=== PATIENT | female | born 1935 | race Caucasian/White ===

== ENCOUNTER 2017-01-27 10:41 | Observation (INO) | payer MEDICARE ==
[2017-01-27 11:01] LABS: Bilirubin Negative (Negative); Blood, Urine Trace (Negative); Glucose, Urine (Dipstick) Negative (Negative); Ketone, Urine Negative (Negative); Nitrite Negative (Negative); Protein, Urine (Dipstick) Trace mg/dL (Neg-Trace); Urobilinogen 0.2 mg/dL (0.2-1.0)
[2017-01-27 11:19] LABS: #Eosinphils 0.4 thou/uL (0.0-0.7); #Lymphocytes 2.1 thou/uL (1.20-3.40); #Monocytes 0.5 thou/uL (0.11-0.59); %Basophils 0.1 % (0.0-1.0); %Eosinophils 4.7 % (0.0-10.0); %Lymphocytes 26.1 % (21.0-51.0); %Monocytes 6.6 % (0.0-10.0); Hematocrit 36.2 % (36.0-47.0); Mean Platelet Volume 6.9 fL (7.4-10.4); Red Blood Cell (RBC) Count 3.89 mill/uL (4.20-5.40)
[2017-01-27 11:36] LABS: Bacteria/HPF 1+ HPF (None Seen); RBC/HPF 0-3 HPF (0-3)
[2017-01-27 11:45] LABS: ALT (SGPT) 19 U/L (8-55); AST (SGOT) 20 U/L (5-34); Alkaline Phosphatase 47 U/L (40-150); Anion Gap 18 mmol/L (10-20); BUN (Urea Nitrogen) 37 mg/dL (9.8-20.1); Bilirubin, Total 0.3 mg/dL (0.2-1.2); Calc. Creatinine Clearance 0 mL/min (70-130); Calcium 9.5 mg/dL (7.8-10.44); Carbon Dioxide 23 mmol/L (23-31); Chloride 99 mmol/L (98-107); Estimated GFR-MDRD 19; Globulin 3.4 g/dL (2.4-3.5); Protein, Total 7.5 g/dL (6.0-8.3)
[2017-01-27 11:51] LABS: Hyaline Casts/LPF NONE SEEN LPF (0-3 Hyaline)
[2017-01-27] MEDS ORDERED: Acetaminophen 325 MG TAB PO PRN ×2 (14:58→15:00)
[2017-01-27] MEDS ORDERED: Ondansetron ODT 4 MG TAB SL PRN (14:58)
[2017-01-27] MEDS ORDERED: Ondansetron HCl/PF 4 MG/2 ML Vial IVP PRN ×2 (14:58→15:00)
[2017-01-27] MEDS ORDERED: Zolpidem Tartrate 5 MG TAB PO PRN (15:00)
[2017-01-27] MEDS ORDERED: Loratadine 10 MG TAB PO PRN (15:00)
[2017-01-27] MEDS ORDERED: HumaLOG 300 UNITS/3 ML VIAL SC PRN ×2 (15:00)
[2017-01-27] MEDS ORDERED: ALPRAZolam 0.5 MG TAB PO PRN (15:00)
[2017-01-27] MEDS ORDERED: Diabetic Tussin 200 MG/10 ML UDCUP PO PRN (15:00)
[2017-01-27] MEDS ORDERED: Dextrose 5% in Water 1,000 ML IV PRN (15:00)
[2017-01-27] MEDS ORDERED: Dextrose 50% Abboject 50 ML SYRINGE SLOW IVP PRN (15:00)
[2017-01-27] MEDS ORDERED: Mag-Al 1200 mg/1200 mg/30 ML UDCUP PO PRN (15:00)
[2017-01-27] MEDS ORDERED: HYDROcodone/Acetaminophen 5/325 mg Tablet PO PRN (15:00)
[2017-01-27] MEDS ORDERED: Ondansetron ODT 4 MG TAB PO PRN (15:00)
[2017-01-27] MEDS ORDERED: Eucerin (Mineral Oil/Petrolatum,White) 30 gm Jar TOP PRN (15:00)
[2017-01-27] MEDS ORDERED: Sodium Chloride 0.65% Nasal 44 ML BOT EA NARE PRN (15:00)
[2017-01-27] MEDS ORDERED: Loperamide HCl 2 MG CAP PO PRN (15:00)
[2017-01-27] MEDS ORDERED: Senokot 8.6 MG TAB PO PRN (15:00)
[2017-01-27] MEDS ORDERED: traZODone HCl 50 MG TAB PO PRN (15:00)
[2017-01-27] MEDS ORDERED: Artificial Tears 18 DROP/0.9 ML EA EYE PRN (15:00)
[2017-01-27] MEDS ORDERED: Milk Of Magnesia 30 ML UDCUP PO PRN (15:00)
[2017-01-27 15:03] VITALS: BMI 32.7
--- NOTE | 2017-01-27 15:21 | HP ---
PRIMARY CARE PHYSICIAN: Johan Shelley M.D. CHIEF COMPLAINT: Sent by primary care physician for elevated creatinine. HISTORY OF PRESENT ILLNESS: An 81-year-old female who has history of chronic kidney disease. Her b aseline chronic kidney disease is a stage III. Patient had regular followup visit with Dr. Johan gaona yesterday. Patient was advised to do blood tests yesterday. She went to [facility] and she had blood test done yesterday morning and her creatinine was 3.31. Normally, her creatini ne runs in 1.3 to 1.5 range, but creatinine was significantly elevated and that is why in the time, the patient received call from doctor's office to go to ER for admission. Patient was feeli ng fine and that is why she did not come to the emergency room yesterday. Today, she was also feeli ng much better, but the patient was instructed and that is why she came to the emergency room for ad mission. Today, her creatinine is 2.40. In the emergency room, patient does have urinary tract infection finding in urinalysis, but when we are asking her questions she denies any UTI symptoms. She denies any dysuria, increased frequency, hematuria, fever, or chills. Patient denies herself dehydrated. She is drinking enough liquids at home as well. Patient denies any chest pain, palpitations or shortness of breath. She denies any c onstipation, diarrhea or abdominal pain. She denies taking NSAIDs. Patient is following Dr. Escamilla as a home care manager rn as an outpatient basis. The patient is being admitted to our hospital for worsening renal failure and urinary tract infectio n. REVIEW OF SYSTEMS: Please see my HPI for pertinent positive and negatives. All other review of sys tem reviewed and negative except as mentioned in the HPI. Constitutional: Weight loss or gain, ability to conduct usual activities. Skin: Rash, itching. Eyes: Double vision, pain. ENT/Mouth: Nose bleeding, neck stiffness, pain, tenderness. Cardiovascular: Palpitations, dyspnea on exertion, orthopnea. Respiratory: Shortness of breath, wheezing, cough, hemoptysis, fever or night sweats. Gastrointestinal: Poor appetite, abdominal pain, heartburn, nausea, vomitin g, constipation, or diarrhea. Genitourinary: Urgency, frequency, dysuria, nocturia. Musculoskeletal: Pain, swelling. Neurologic/Psychiatric: Anxiety, depression. Allergy/Immunologic: Skin rash, bleeding tendency. PAST MEDICAL HISTORY: Diabetes type 2, hypertension, hypothyroidism and dyslipidemia. PAST PSYCHIATRIC HISTORY: Anxiety and depression. PAST SURGICAL HISTORY: Right-sided lumpectomy, which turned out to be benign. ALLERGIES: SULFA DRUGS. SOCIAL HISTORY: Patient lives at home by herself. No history of tobacco, alcohol or illicit drug a buse. FAMILY HISTORY: No strong family history of premature coronary artery disease, stroke or cancer. CURRENT HOME MEDICATIONS: Metformin 1000 mg p.o. twice daily, venlafaxine 75 mg p.o. daily, trazodo ne 150 mg p.o. daily, Lipitor 80 mg p.o. at bedtime, Xanax 0.5 mg twice daily, Januvia 100 mg p.o. d aily, vitamin B12 1000 mcg p.o. daily, Synthroid 100 mcg p.o. daily, aspirin 325 mg p.o. daily, Core g 6.25 mg twice daily, amlodipine 10 mg p.o. daily, glipizide 10 mg twice daily, Zetia 10 mg p.o. da leanne, clonidine patch 0.2 mg twice daily. EMERGENCY ROOM COURSE: The patient has received IV fluid. PHYSICAL EXAMINATION: VITAL SIGNS: On arrival in blood pressure 135/70, pulse 66, respiratory rate 18, temperature 98.2, saturation 93% on room air, weight 72.5 kilograms. GENERAL: Patient is currently alert, awake, in no obvious acute distress. HEENT: Normocephalic, atraumatic. Eyes: Pupils round, reactive to light. Extraocular muscles int act. ENT: Oropharynx within normal limits. Moist mucous membranes. No oral lesions. No pharyngeal karl thema. No exudate. NECK: Supple. Range of motion is normal. No meningeal signs of irritation. LUNGS: Clear to auscultation without any rhonchi or rales. CARDIAC: S1, S2 regular without any murmur. ABDOMEN: Soft, bowel sounds present, nontender, nondistended. No organomegaly. No mass. No supra pubic tenderness. BACK: Unremarkable, no CVA tenderness. EXTREMITIES: Upper extremity passive movement of all joints are normal. Lower extremities: No berna ma. Good peripheral pulsation. SKIN: No skin rash. HEMATOLOGICAL SYSTEM: No lymphadenopathy. NEUROLOGIC: Nonfocal examination. The patient moves all 4 limbs. Plantar bilateral flexor. PSYCHIATRIC: Normal affect. SIGNIFICANT LABS: 1. CBC: WBC 8.0, hemoglobin 12.2, platelet 336,000. BMP: Sodium 136, potassium 4.3, chloride 99, carbon dioxide 23, anion gap 18, BUN 37, creatinine 2.40, glucose 243, calcium 9.5. 2. LFT: AST 20, ALT 19, alkaline phosphatase 47, albumin 4.1. Urinalysis suggestive of urinary tr act infection. ASSESSMENT AND PLAN/IMPRESSION: 1. Acute on chronic kidney failure. Baseline chronic kidney disease stage 3. This patient's renal function was elevated yesterday to 3.31 and today at 2.40. Normally her creatinine runs in 1.3-1.5 range. At this point, most likely the patient has prerenal etiology for acute kidney failure. Pat ient will be given slow IV fluid and will repeat BMP tomorrow. We will obtain a renal ultrasound to see any acute process based on previous renal ultrasound. The patient does have chronic medical di sease. This patient is following Dr. Escamilla; and that is why, we will consult Dr. Escamilla for his opinio n, will avoid nephrotoxic agents. We will check urine sodium, urine creatinine, and urine protein a s a part of workup. 2. Urinary tract infection. The patient does not have any urinary tract infection symptoms. Urina lysis consistent with urinary tract infection. We will send urine culture and empirically start Grayson ephin 1 g q. 24 hours. Upon discharge, the patient can be given Cipro renally adjusted dose. 3. Diabetes type 2. We will check hemoglobin A1c and will continue with insulin as per sliding sca le per protocol. Diabetic diet will be given. We will also continue patient's home medication of J anuvia 100 mg p.o. daily and glipizide 10 mg p.o. b.i.d. We will hold metformin because of renal fa ilure. 4. Hypertension. We will continue amlodipine 10 mg p.o. daily. We will hold on lisinopril because of renal failure. We will also continue Coreg 12.5 mg p.o. twice daily, clonidine 0.2 mg twice jenniffer ly. 5. Hypothyroidism. We will continue Synthroid 100 mcg p.o. daily. 6. Dyslipidemia. We will continue Lipitor 80 mg p.o. daily and Zetia 10 mg p.o. daily. 7. Anxiety with depression. We will continue venlafaxine 75 mg p.o. daily, Xanax 0.5 mg p.o. b.i.d ., Ambien 10 mg p.o. at bedtime and trazodone 150 mg p.o. daily. 8. Deep venous thrombosis prophylaxis not needed because we are expecting discharge in 24-48 hours. 9. Gastrointestinal prophylaxis, Protonix 40 mg p.o. daily. CODE STATUS: The patient is FULL CODE. Patient does not have any surrogate decision maker. Disposition plan based on clinical course upon improvement of renal function. Plan of care discusse d with the patient in detail.
[2017-01-27] MEDS ORDERED: cefTRIAXone\\ROCEPHIN 1 GM in Sodium Chloride 0.9% 100 ML IVPB SCH (16:00)
[2017-01-27] MEDS: Sodium Chloride 0.9% 1,000 ML IV SCH (17:02)
[2017-01-27] MEDS: Carvedilol 6.25 MG TAB PO SCH (17:02)
--- NOTE | 2017-01-27 19:18 | ULT ---
RENAL SONOGRAM: 01/27/17 HISTORY: Acute renal insufficiency. FINDINGS: Limited visualized portion of the right hepatic lobe demonstrates increased echogenicity suggesting diffuse fatty infiltration. The right kidney demonstrates a normal sonographic appearance without evidence of a renal calculus, hydronephrosis, or renal mass. The right kidney measures 8.6 cm x 5 cm. The left kidney measures 9.6 cm x 4.2 cm. There is an anechoic cystic structure seen in the mid port ion of the left kidney measuring 1.8 cm which demonstrates sonographic characteristics most consiste nt with a cyst. This cyst has enlarged when compared to prior study on 06/10/14 where this measured 1. 5 cm in maximal dimensions. There is no solid renal mass, renal calculus or hydronephrosis involving the left kidney. Urinary bladder is incompletely distended but otherwise grossly normal in appearance. There has been no other interval change compared to the prior exam in 2014. IMPRESSION: 1. Small left renal cyst. 2. No evidence of hydronephrosis bilaterally. 3. Mild fatty infiltration of the visualized right hepatic lobe. POS: TAHIR
[2017-01-27] MEDS ORDERED: Atorvastatin Calcium 40 MG TAB PO SCH (21:00)
[2017-01-28 04:28] LABS: #Eosinphils 0.4 thou/uL (0.0-0.7); #Lymphocytes 2.6 thou/uL (1.20-3.40); #Monocytes 0.8 thou/uL (0.11-0.59); #Neutrophils 3.4 thou/uL (1.40-6.50); %Basophils 0.5 % (0.0-1.0); %Eosinophils 4.9 % (0.0-10.0); %Lymphocytes 36.5 % (21.0-51.0); %Monocytes 10.8 % (0.0-10.0); Hematocrit 32.3 % (36.0-47.0); Mean Platelet Volume 6.9 fL (7.4-10.4); Red Blood Cell (RBC) Count 3.43 mill/uL (4.20-5.40); White Blood Cell (WBC) Count 7.2 thou/uL (4.8-10.8)
[2017-01-28 04:51] LABS: Anion Gap 13 mmol/L (10-20); BUN (Urea Nitrogen) 30 mg/dL (9.8-20.1); BUN/Creatinine Ratio 15.87; Calc. Creatinine Clearance 27 mL/min (70-130); Calcium 8.5 mg/dL (7.8-10.44); Carbon Dioxide 23 mmol/L (23-31); Chloride 106 mmol/L (98-107); Estimated GFR-MDRD 26
[2017-01-28] MEDS ORDERED: Levothyroxine Sodium 100 MCG TAB PO SCH (06:00)
--- NOTE | 2017-01-28 07:06 | CON ---
DATE OF CONSULTATION: 01/27/2017 CONSULTING PHYSICIAN: Angela Angel M.D. REASON FOR CONSULTATION: Acute kidney injury. REASON FOR ADMISSION: Abnormal labs. HISTORY OF PRESENT ILLNESS: This is an 81-year-old female with a history of chronic kidney disease, hypertension, obesity, type 2 diabetes, hypothyroidism, came to the hospital with abnormal labs. S he was found to have elevated creatinine of 3.3 from a baseline of 1.3 and was sent to the hospital yesterday, but she ; she was feeling fine. She denies any nausea, vomiting, or diarrhea. No c hest pain or palpitation. No fever or chills. No change in medication or antibiotics lately. No s kin rash. PAST MEDICAL HISTORY: Positive for type 2 diabetes, hypertension, CKD, hypothyroidism, dyslipidemia , anxiety, and depression. PAST SURGICAL HISTORY: Lumpectomy. HOME MEDICATIONS: Metformin, venlafaxine, trazodone, Lipitor, Xanax, Januvia, vitamin B12, Synthroi d, aspirin, Coreg, amlodipine, glipizide, Zetia, and clonidine. ALLERGIES: SULFA DRUGS. SOCIAL HISTORY: No smoking, alcohol or illicit drug abuse reported. FAMILY HISTORY: No history of any kidney disease. REVIEW OF SYSTEMS: The following complete review of systems was negative unless otherwise mentioned in the HPI or below: Constitutional: Weight loss or gain, ability to conduct usual activities. S kin: Rash, itching. Eyes: Double vision, pain. ENT/Mouth: Nose bleeding, neck stiffness, pain, tenderness. Cardiovascular: Palpitations, dyspnea on exertion, orthopnea. Respiratory: Shortness of breath, wheezing, cough, hemoptysis, fever or night sweats. Gastrointestinal: Poor appetite, a bdominal pain, heartburn, nausea, vomiting, constipation, or diarrhea. Genitourinary: Urgency, kira quency, dysuria, nocturia. Musculoskeletal: Pain, swelling. Neurologic/Psychiatric: Anxiety, dep ression. Allergy/Immunologic: Skin rash, bleeding tendency. PHYSICAL EXAMINATION: GENERAL: This is an obese female, in no apparent distress. VITAL SIGNS: Temperature 96, pulse 80, respiratory rate 18, blood pressure is 166/69. HEENT: Atraumatic, normocephalic. Oral mucosa is moist. NECK: Supple. CARDIOVASCULAR: S1, S2 heard. Rate and rhythm regular. RESPIRATORY: Clear. GASTROINTESTINAL: Abdomen is soft. MUSCULOSKELETAL: No tenderness noted. DERMATOLOGIC: No skin rash. NEUROLOGIC: Alert, awake. PSYCHIATRIC: Mood and affect normal. LABORATORY DATA: Hemoglobin is 12.2. Potassium is 4.3, BUN is 37, creatinine is 2.4 from 3.3. ASSESSMENT AND PLAN: 1. Acute kidney injury most likely volume depletion even though history is not suggestive of that. Continue IV fluids. Renal function is already better. 2. Renal ultrasound with small left renal cyst, no evidence of any hydronephrosis bilaterally. 3. Hypertension, stable. 4. Edema, controlled. 5. Type 2 diabetes. Plan is to monitor renal function, avoid nephrotoxins. Renally dose all the medications. Medicatio n list reviewed and monitor blood pressure closely, avoid hypotension. Continue IV fluids. We will continue to follow. Thank you for the consultation.
[2017-01-28] MEDS ORDERED: glipiZIDE 10 MG TAB PO SCH (07:30)
[2017-01-28 08:33] VITALS: BP 126/91; TEMP 98.3
[2017-01-28] MEDS ORDERED: Cyanocobalamin (Vitamin B-12) 1,000 MCG TAB PO SCH (09:00)
[2017-01-28] MEDS ORDERED: Ezetimibe 10 MG TAB PO SCH (09:00)
[2017-01-28] MEDS ORDERED: Alogliptin Benzoate 6.25 MG TABLET PO SCH (09:00)
[2017-01-28] MEDS: Sodium Chloride 0.9% 1,000 ML IV SCH (09:00)
[2017-01-28] MEDS ORDERED: Aspirin 325 MG TAB PO SCH (09:00)
[2017-01-28] MEDS ORDERED: Venlafaxine HCl XR 75 MG CAP PO SCH (09:00)
[2017-01-28] MEDS: Carvedilol 6.25 MG TAB PO SCH (09:01)
--- NOTE | 2017-01-28 15:00 | DIS ---
DATE OF ADMISSION: 01/27/2017 DATE OF DISCHARGE: 01/28/2017 PRIMARY CARE PHYSICIAN: Dr. Johan Shelley. DISCHARGE DIAGNOSIS: Acute on chronic renal insufficiency, resolving. CONDITION OF PATIENT AT THE TIME OF DISCHARGE: Stable. I assessed Ms. Parmar on the day of discha rge. She denies any chest pain or shortness of breath. PHYSICAL EXAMINATION: VITAL SIGNS: Stable. HEART: S1 and S2 are heard, regular. LUNGS: Clear to auscultation bilaterally. DISCHARGE MEDICATIONS: Alprazolam 0.5 mg 2 times a day, amlodipine 10 mg daily, aspirin 325 mg luis y, atorvastatin 80 mg daily, Coreg 6.25 mg 2 times a day, Zetia 10 mg daily, venlafaxine 75 mg daily , clonidine 0.2 mg 2 times a day, glipizide 10 mg 2 times a day, Januvia 100 mg daily, trazodone 150 mg daily. Metformin has been discontinued until it is reassessed by her primary care physician. HOSPITAL COURSE: Ms. Parmar is a pleasant 81-year-old lady who was admitted to [facility] on 01/28/2017. She was sent to the emergency room because of acute on chronic renal insufficiency. She was seen by Nephrology Service. She received intravenous fluids. Metformin was on hold. Her creatinine improved to 1.89 on the day of discharge. It was 3.31 on 01/26/2017. Her metformin has been stopped until her renal function improves. She is advised to follow up with her primary care physician to be reassessed. She was also started on antibiotics for possible urinary tract infection. However, she denied any d ysuria or increased frequency of urination. Therefore, antibiotics were stopped prior to discharge. On the day of discharge, Ms. Parmar has normal electrolytes, blood urea nitrogen of 30, creatinine 1.89. White count 7,200, hemoglobin 10.8, and platelet count 255,000. Many thanks for allowing me to participate in your patient's care. Please feel free to contact me w ith any questions or concerns. DISCHARGE DESTINATION: Home.
--- NOTE | 2017-01-28 17:08 | PRG ---
DATE OF SERVICE: 01/28/2017 NEPHROLOGY PROGRESS NOTE SUBJECTIVE: Patient was seen and examined at bedside and overnight events noted. Patient denies an y shortness of breath or chest pain or palpitation. No history of nausea or vomiting or diarrhea or fever or chills or cramps. OBJECTIVE: GENERAL: This is a well-built female in no apparent distress. VITAL SIGNS: Temperature 98.3, pulse 50, respiratory rate 16, blood pressure 126/91. HEENT: Atraumatic, normocephalic. Oral mucosa is moist. NECK: Supple. CARDIOVASCULAR: S1 and S2 heard, rate and rhythm regular. RESPIRATORY: Clear to auscultation. GASTROINTESTINAL: Abdomen is soft. MUSCULOSKELETAL: No tenderness, no edema. DERMATOLOGIC: No skin rash. NEUROLOGIC: Alert and awake and oriented X3. No focal neurologic deficits. Moving all the extremi ties. PSYCHIATRIC: Mood and affect normal. LABORATORY DATA: Creatinine 1.8, potassium 4.2. ASSESSMENT AND PLAN: 1. Acute kidney injury on chronic kidney disease, stage 3. Renal function is getting better. Avoi d nephrotoxins. Patient wants to go home today. 2. Hypertension, stable. 3. Edema, controlled. 4. Type 2 diabetes. 5. Obesity. The patient wanted to go home. Follow up in the clinic in 1 week.
--- NOTE | 2017-01-30 16:20 | RAD ---
SINGLE VIEW OF THE CHEST: Comparison: 08-08-16 History: Unable to urinate, renal failure. FINDINGS: Single view of the chest shows a normal sized cardiomediastinal silhouette with atherosclerotic calc ifications in the aorta. There is no evidence of consolidation, mass, or pleural effusion. Degenerat mark changes are seen in the spine. IMPRESSION: 1. No evidence of acute cardiopulmonary disease. 2. Atherosclerotic disease. POS: CARSONH
== END 2017-01-28 13:45 | disposition home or self-care (01) ==
LOC: ERS 10:41 → 2SW 13:47
PROVIDERS: ADMIT Internal Medicine; ATTEND Internal Medicine
DX: N17.9 Acute kidney failure, unspecified (principal); E11.22 Type 2 diabetes mellitus with diabetic chronic kidney disease; I12.9 Hypertensive chronic kidney disease with stage 1 through stage 4 chronic kidney disease, or unspecified chronic kidney disease; N18.3 Chronic kidney disease, stage 3 (moderate); E03.9 Hypothyroidism, unspecified; E78.5 Hyperlipidemia, unspecified; F41.9 Anxiety disorder, unspecified; F32.9 Major depressive disorder, single episode, unspecified; E66.9 Obesity, unspecified; Z68.32 Body mass index [BMI] 32.0-32.9, adult; Z88.2 Allergy status to sulfonamides; Z79.84 Long term (current) use of oral hypoglycemic drugs; Z79.82 Long term (current) use of aspirin; Z79.899 Other long term (current) drug therapy; Z98.890 Other specified postprocedural states
CPT/HCPCS: 71010; 76770; 80053; 80069; 82570; 82962 ×2; 84156; 84300; 85025 ×2; 87086; 96361 ×3; 96365; 97139; 99285; G0378; 36415; 36416; 81003; 81015; 96360; J0696; J7050

== ENCOUNTER 2017-05-04 15:11 | Inpatient (IN) | payer MEDICARE ==
--- NOTE | 2017-05-04 16:41 | CT ---
CT ABDOMEN AND PELVIS NONCONTRAST 05/04/17 HISTORY: Urinary retention. Left flank pain. COMPARISON: 02/24/09. FINDINGS: Each renal collecting system and ureter are decompressed without stone evident. Urinary bladder shows no focal abnormalities. Lack of contrast limits evaluation for other abnormalities. Chronic scarring at the left lung base is stable. There is calcification throughout the arterial structures. Inflammation within the left lowe r quadrant surrounds an area of circumferential wall thickening involving the lower left colon where there are prominent diverticula. Diverticula are present throughout the remainder of the sigmoid colo n. IMPRESSION: 1. No CT evidence of urinary tract obstruction or calcification. 2. Lower left colon diverticulitis. 3. Atherosclerosis. POS: CARSON
[2017-05-04 17:05] LABS: Bilirubin Negative (Negative); Blood, Urine Negative (Negative); Clarity CLEAR (Clear); Glucose, Urine (Dipstick) Negative (Negative); Leukocyte Negative (Negative); Nitrite Negative (Negative); Protein, Urine (Dipstick) Negative (Neg-Trace); Specific Gravity, Urine 1.016 (1.002-1.036); Urobilinogen 0.2 mg/dL (0.2-1.0)
[2017-05-04 18:22] LABS: #Basophils 0.1 thou/uL (0.0-0.2); #Eosinphils 0.3 thou/uL (0.0-0.7); #Lymphocytes 2.8 thou/uL (1.20-3.40); #Monocytes 1.5 thou/uL (0.11-0.59); #Neutrophils 12.6 thou/uL (1.40-6.50); %Basophils 0.5 % (0.0-1.0); %Eosinophils 1.9 % (0.0-10.0); %Monocytes 8.5 % (0.0-10.0); %Neutrophils 73.1 % (42.0-75.0); Hemoglobin 13.1 g/dL (12.0-16.0); Mean Corpuscular HGB CONC 31.9 g/dL (32.0-36.0); Mean Corpuscular Volume 94.2 fl (81.0-99.0); Mean Platelet Volume 7.1 fL (7.4-10.4); Platelet Count 287 thou/uL (130-400); Red Blood Cell (RBC) Count 4.38 mill/uL (4.20-5.40); White Blood Cell (WBC) Count 17.3 thou/uL (4.8-10.8)
[2017-05-04 18:39] LABS: ALT (SGPT) Less than 7 U/L (8-55); AST (SGOT) 18 U/L (5-34); Albumin 4.1 g/dL (3.4-4.8); Alkaline Phosphatase 56 U/L (40-150); Anion Gap 18 mmol/L (10-20); BUN (Urea Nitrogen) 36 mg/dL (9.8-20.1); Bilirubin, Total 0.5 mg/dL (0.2-1.2); Calc. Creatinine Clearance 0 mL/min (70-130); Calcium 9.6 mg/dL (7.8-10.44); Carbon Dioxide 21 mmol/L (23-31); Chloride 102 mmol/L (98-107); Estimated GFR-MDRD 22; Globulin 3.4 g/dL (2.4-3.5); Glucose 106 mg/dL (83-110); Protein, Total 7.5 g/dL (6.0-8.3); Sodium 137 mmol/L (136-145)
[2017-05-04] MEDS ORDERED: Acetaminophen 325 MG TAB PO PRN (19:03)
[2017-05-04] MEDS: Sodium Chloride 0.9% 1,000 ML IV SCH (20:18)
[2017-05-04 22:09] VITALS: BMI 33.7
[2017-05-04] MEDS: metroNIDAZOLE 500 MG in Premix Bag 1 BAG IVPB SCH (23:10)
[2017-05-04] MEDS: HYDROcodone/Acetaminophen 5/325 mg Tablet PO PRN (23:47)
--- NOTE | 2017-05-05 02:15 | HP ---
CHIEF COMPLAINT: Dysuria, unable to pee, make urine. HISTORY OF PRESENT ILLNESS: She is an 81-year-old woman with a history of hypertension, hypothyroidism, diabetes. She came in because of having problem with not peeing for the last 2 days, not eating much, with nausea, and dysuria frequency. When she came to ER, she was found to have urinary retention. Mccullough was placed and 600 urine came out. She also complained of left lower quadrant pain. Denies any fever or any constipation, any bleeding per rectum. PAST MEDICAL HISTORY: She has history of kidney disease, CKD, diabetes, hypertension. PAST SURGICAL HISTORY: Right-sided lumpectomy, benign. PSYCHIATRIC HISTORY: Anxiety and bipolar disorder. SOCIAL HISTORY: Denies alcohol use, drug use. Has no smoking history. Lives at home. Family History: reviewed and not pertinent to current illness MEDICATIONS AT HOME: She is taking metformin 1000 twice daily, trazodone 150 every day, Lipitor 80 mg every day, Januvia 100 mg, Synthroid 100 mcg, amlodipine 1 tablet twice daily, glipizide 10 mg, aspirin 325, clonidine patch weekly, and Zetia. REVIEW OF SYSTEMS: Constitutional: Denies any fever, malaise. ENT: No earaches, no discharge. Eye: No vision problem. Cardiovascular: No chest pain, no PND, no palpitation : Respiratory: No cough, no short of breath. Abdomen: Pain in left lower quadrant. No nausea, no vomiting. Genitourinary: Urinary retention present. The CT scan shows no focal abnormality. Her urine shows negative. PE: Middle age woman not in any distress P89, BP14/60, RR 16, temp 98.6 HEENT, ATNC ANGELIC, EOMI Neck supple, no JVD, no Thyromegaly Chest, Normal Vesicular Breathing, no added sound Abdomen Soft, BS audible, Tenderness in LLQ, no guarding, no rigidity Ext, no pedal edema EMPLOYMENT AGENCY MANAGER Alert and oriented , no focal defecit Labs CT scan showed Acute Diverticultis ASSESSMENT AND PLAN: 1. Acute diverticulitis. We will give IV fluids, IV Levaquin, IV Flagyl. Clear liquid diet as tolerated. 2. Urine retention with Mccullough in place. She has 600 mL out. No any obstruction, could be hypovolemia. 3. Acute chronic kidney disease. We will give IV fluid and monitor her kidneys , BMP. 4. Type 2 diabetes. We will hold her metformin and continue sliding scale. 5. Hypertension. Continue amlodipine. 6. Deep venous thrombosis prophylaxis will be heparin. MTDD
[2017-05-05] MEDS: Sodium Chloride 0.9% 1,000 ML IV SCH ×3 (02:44→21:09)
[2017-05-05 04:34] LABS: #Basophils 0.1 thou/uL (0.0-0.2); #Eosinphils 0.3 thou/uL (0.0-0.7); #Lymphocytes 2.3 thou/uL (1.20-3.40); #Monocytes 1.1 thou/uL (0.11-0.59); #Neutrophils 7.2 thou/uL (1.40-6.50); %Basophils 0.5 % (0.0-1.0); %Eosinophils 2.8 % (0.0-10.0); %Lymphocytes 21.2 % (21.0-51.0); %Monocytes 10.2 % (0.0-10.0); %Neutrophils 65.2 % (42.0-75.0); Hemoglobin 10.4 g/dL (12.0-16.0); Mean Corpuscular HGB CONC 32.1 g/dL (32.0-36.0); Mean Corpuscular Volume 93.2 fl (81.0-99.0); Mean Platelet Volume 7.4 fL (7.4-10.4); Platelet Count 239 thou/uL (130-400); Red Blood Cell (RBC) Count 3.46 mill/uL (4.20-5.40)
[2017-05-05 05:05] LABS: Anion Gap 12 mmol/L (10-20); BUN (Urea Nitrogen) 28 mg/dL (9.8-20.1); Calc. Creatinine Clearance 31 mL/min (70-130); Calcium 8.7 mg/dL (7.8-10.44); Carbon Dioxide 25 mmol/L (23-31); Chloride 106 mmol/L (98-107); Estimated GFR-MDRD 29; Glucose 85 mg/dL (83-110); Potassium 3.8 mmol/L (3.5-5.1); Sodium 139 mmol/L (136-145)
[2017-05-05] MEDS: metroNIDAZOLE 500 MG in Premix Bag 1 BAG IVPB SCH ×3 (05:36→21:10)
[2017-05-05] MEDS: Enoxaparin Sodium 40 MG/0.4 ML SYRINGE SC SCH (11:57)
--- NOTE | 2017-05-05 13:27 | PDOC.PN ---
- Subjective Encounter Start Date: 05/05/17 Encounter Start Time: 13:27 Subjective: Pt seen and examined for Urinary retention and Left Diverticulitis -: feeling better, urine output adequate - Objective Resuscitation Status: Resuscitation Status FULL:Full Resuscitation Vital Signs & Weight: Vital Signs (12 hours) Temp Pulse Resp BP Pulse Ox 05/05/17 11:42 97.8 F 75 18 175/76 H 95 05/05/17 08:00 98.4 F 73 16 129/48 L 92 L Weight Weight 161 lb 8 oz I&O: 05/04/17 05/05/17 05/06/17 06:59 06:59 06:59 Intake Total 1391 Output Total 2250 Balance -859 Result Diagrams: 05/05/17 03:34 05/05/17 03:34 Additional Labs: Accuchecks 05/05/17 10:57 POC Glucose 292 H Phys Exam - Physical Examination HEENT: PERRLA Respiratory: no wheezing, no rales, no rhonchi, wheezing present, clear to auscultation bilateral Cardiovascular: RRR, no significant murmur, no rub, gallop, irregular Gastrointestinal: soft, non-tender, no distention, positive bowel sounds Tenderness LLQ Musculoskeletal: no edema, pulses present, edema present Neurological: non-focal, normal sensation, moves all 4 limbs Psychiatric: normal affect, A&O x 3 Dx/Plan (1) Urinary retention Code(s): R33.9 - RETENTION OF URINE, UNSPECIFIED Status: Acute (2) Diverticulitis large intestine Code(s): K57.32 - DVTRCLI OF LG INT W/O PERFORATION OR ABSCESS W/O BLEEDING Status: Acute - Plan DVT proph w/heparin, DVT proph w/lovenox 1) Acute Diverticultis, continue IV Levaquin, IV Flagyl -: 2) Urinary retention , Mccullough in PLace -: 3 AKIL is improving * . Review of Systems - Review of Systems Respiratory: negative: Cough, Dry, Shortness of Breath, Hemoptysis, SOB with Excertion, Pleuritic Pain, Sputum, Wheezing Cardiovascular: negative: chest pain, palpitations, orthopnea, paroxysmal nocturnal dyspnea, edema, light headedness, other Genitourinary: negative: Dysuria, Frequency, Incontinence, Hematuria, Retention , Other Musculoskeletal: Neck Pain - Medications/Allergies Allergies/Adverse Reactions: Allergies Allergy/AdvReac Type Severity Reaction Status Date / Time Sulfa (Sulfonamide Allergy Verified 12/12/14 21:53 Antibiotics) Medications: Current Medications Acetaminophen (Tylenol) 650 mg PO Q4H PRN PRN Reason: Headache/Fever or Pain Hydrocodone Bitart/Acetaminophen (Tulia 5/325) 1 tab PO Q4H PRN PRN Reason: Moderate Pain (4-6) Last Admin: 05/04/17 23:47 Dose: 1 tab Alprazolam (Xanax) 0.[address] [facility] Amlodipine Besylate (Norvasc) [address] [facility] Aspirin (Ecotrin) [address] [facility] Atorvastatin Calcium (Lipitor) [address] [facility] Carvedilol (Coreg) [address] [facility] Clonidine (Catapres) 0.[address] [facility] Ezetimibe (Zetia) [address] [facility] Enoxaparin Sodium (Lovenox) [address] [facility] Last Admin: 05/05/17 11:57 Dose: Not Given Hydralazine HCl (Apresoline) [address] [facility] Levofloxacin 750 mg/ Device 150 mls @ 100 mls/hr IVPB 1800 [facility] Metronidazole 500 mg/ Device 100 mls @ 100 mls/hr IVPB Q8HR [facility] Last Admin: 05/05/17 05:36 Dose: 100 mls Sodium Chloride (Normal Saline 0.9%) 1,000 mls @ 125 mls/hr IV .Q8H [facility] Last Admin: 05/05/17 13:01 Dose: 1,000 mls Insulin Detemir 45 units/ (Miscellaneous Medication) 0.45 mls @ 0 mls/hr SC DAILY [facility] PRN Reason: As Directed Levothyroxine Sodium (Synthroid) [address] [facility] Trazodone HCl (Desyrel) [address] [facility] Venlafaxine HCl (Effexor) [address] [facility]
[2017-05-05] MEDS: hydrALAZINE 25 MG TAB PO SCH ×2 (17:18→21:10)
[2017-05-05] MEDS: ALPRAZolam 0.5 MG TAB PO SCH (21:09)
[2017-05-05] MEDS: cloNIDine 0.2 MG TAB PO SCH (21:09)
[2017-05-05] MEDS: HYDROcodone/Acetaminophen 5/325 mg Tablet PO PRN (21:10)
[2017-05-06] MEDS: Sodium Chloride 0.9% 1,000 ML IV SCH ×3 (02:14→18:17)
[2017-05-06] MEDS: Levothyroxine Sodium 100 MCG TAB PO SCH (05:51)
[2017-05-06] MEDS: metroNIDAZOLE 500 MG in Premix Bag 1 BAG IVPB SCH (05:51)
[2017-05-06] MEDS: traZODone HCl 150 MG TAB PO SCH (07:51)
[2017-05-06] MEDS: Ezetimibe 10 MG TAB PO SCH (07:51)
[2017-05-06] MEDS: hydrALAZINE 25 MG TAB PO SCH ×3 (07:52→20:35)
[2017-05-06] MEDS: Atorvastatin Calcium 40 MG TAB PO SCH (07:52)
[2017-05-06] MEDS: Aspirin 325 mg Enteric Coated Tablet PO SCH (07:52)
[2017-05-06] MEDS: Carvedilol 25 MG TAB PO SCH (07:52)
[2017-05-06] MEDS: ALPRAZolam 0.5 MG TAB PO SCH ×2 (07:53→20:35)
[2017-05-06] MEDS: cloNIDine 0.2 MG TAB PO SCH ×2 (07:53→20:35)
[2017-05-06] MEDS: Insulin Detemir 100 UNITS/ML 45 UNITS in Pre-Filled Syringe 1 EACH SC SCH (07:53)
[2017-05-06] MEDS: Amlodipine 10 MG TAB PO SCH (07:53)
[2017-05-06] MEDS: Enoxaparin Sodium 40 MG/0.4 ML SYRINGE SC SCH (07:58)
[2017-05-06] MEDS ORDERED: INSULIN GLARGINE HUM REC ANLOG 45 UNIT SC SCH (09:00)
[2017-05-06] MEDS ORDERED: Carvedilol 6.25 MG TAB PO SCH (09:00)
--- NOTE | 2017-05-06 13:37 | PDOC.PN ---
- Subjective Encounter Start Date: 05/06/17 Encounter Start Time: 13:40 Subjective: Patient depressed due to lunch late. Still with LLQ pain unchanged. No BM. -: Ayon in place. No fever/chills. - Objective Resuscitation Status: Resuscitation Status FULL:Full Resuscitation MAR Reviewed: Yes Vital Signs & Weight: Vital Signs (12 hours) Temp Pulse Resp BP BP Pulse Ox 05/06/17 08:00 97.2 F L 69 18 95 05/06/17 07:53 69 164/79 H 05/06/17 07:52 69 05/06/17 07:48 97.5 F L 69 18 126/70 96 Weight Weight 161 lb 8 oz I&O: 05/05/17 05/06/17 05/07/17 06:59 06:59 06:59 Intake Total 1391 1168 420 Output Total 2250 2200 Balance -859 1032 420 Result Diagrams: 05/05/17 03:34 05/05/17 03:34 Additional Labs: Accuchecks 05/06/17 05/05/17 05/05/17 04:05 19:16 15:52 POC Glucose 131 H 214 H 256 H Phys Exam - Physical Examination Constitutional: NAD HEENT: moist MMs Respiratory: no wheezing, no rales, no rhonchi Cardiovascular: RRR, no significant murmur Gastrointestinal: soft, positive bowel sounds TTP LLQ Neurological: non-focal, moves all 4 limbs Psychiatric: A&O x 3 Deviation from normal: Depression Dx/Plan (1) Diverticulitis large intestine Code(s): K57.32 - DVTRCLI OF LG INT W/O PERFORATION OR ABSCESS W/O BLEEDING Status: Acute Comment: Leukocytosis improving. (2) Urinary retention Code(s): R33.9 - RETENTION OF URINE, UNSPECIFIED Status: Acute Comment: Ayon in place (3) Diabetes mellitus type 2 in obese Code(s): E11.69 - TYPE 2 DIABETES MELLITUS WITH OTHER SPECIFIED COMPLICATION; E66.9 - OBESITY, UNSPECIFIED Status: Chronic (4) Acute renal failure (ARF) Status: Acute Comment: Improving with IV fluids, adjusting Levaquin for depressed GFR - Plan cont current plan of care, continue antibiotics, PT/OT, DVT proph w/lovenox Will d/c ayon and check for persistent retention. * . - Discharge Day Encounter end time: 14:10
[2017-05-06] MEDS: metroNIDAZOLE 500 MG TAB PO SCH ×2 (14:44→20:36)
[2017-05-06] MEDS: HYDROcodone/Acetaminophen 5/325 mg Tablet PO PRN (20:36)
[2017-05-07] MEDS: Sodium Chloride 0.9% 1,000 ML IV SCH ×3 (02:35→16:19)
[2017-05-07] MEDS: Levothyroxine Sodium 100 MCG TAB PO SCH (05:11)
[2017-05-07] MEDS: Enoxaparin Sodium 30 MG/0.3 ML SYRINGE SC SCH (07:51)
[2017-05-07] MEDS: traZODone HCl 150 MG TAB PO SCH (07:51)
[2017-05-07] MEDS: ALPRAZolam 0.5 MG TAB PO SCH ×2 (07:52→20:13)
[2017-05-07] MEDS: Carvedilol 25 MG TAB PO SCH (07:52)
[2017-05-07] MEDS: Aspirin 325 mg Enteric Coated Tablet PO SCH (07:52)
[2017-05-07] MEDS: Atorvastatin Calcium 40 MG TAB PO SCH (07:52)
[2017-05-07] MEDS: Ezetimibe 10 MG TAB PO SCH (07:52)
[2017-05-07] MEDS: metroNIDAZOLE 500 MG TAB PO SCH ×3 (07:52→20:13)
[2017-05-07] MEDS: cloNIDine 0.2 MG TAB PO SCH ×2 (07:53→20:19)
[2017-05-07] MEDS: hydrALAZINE 25 MG TAB PO SCH ×3 (07:53→20:19)
[2017-05-07] MEDS: Amlodipine 10 MG TAB PO SCH (07:53)
[2017-05-07] MEDS: Insulin Detemir 100 UNITS/ML 45 UNITS in Pre-Filled Syringe 1 EACH SC SCH (08:17)
--- NOTE | 2017-05-07 17:08 | PDOC.PN ---
- Subjective Subjective: seen and examined - Objective Resuscitation Status: Resuscitation Status FULL:Full Resuscitation Vital Signs & Weight: Vital Signs (12 hours) Temp Pulse Resp BP BP Pulse Ox 05/07/17 14:21 71 05/07/17 08:00 97.4 F L 71 18 125/67 96 05/07/17 07:53 61 143/63 H Weight Weight 161 lb 8 oz I&O: 05/06/17 05/07/17 05/08/17 06:59 06:59 06:59 Intake Total 1168 1836 600 Output Total 2200 Balance -1032 1836 600 Result Diagrams: 05/05/17 03:34 05/05/17 03:34 Phys Exam - Physical Examination Constitutional: NAD HEENT: PERRLA, moist MMs, sclera anicteric, TM's clear Neck: no nodes, no JVD, supple, full ROM Respiratory: no wheezing, no rales, no rhonchi, clear to auscultation bilateral Cardiovascular: RRR, no significant murmur, no rub Gastrointestinal: soft, non-tender, no distention, positive bowel sounds Musculoskeletal: no edema, pulses present Dx/Plan (1) Acute renal failure (ARF) Status: Acute Comment: Improving with IV fluids, adjusting Levaquin for depressed GFR (2) Diverticulitis large intestine Code(s): K57.32 - DVTRCLI OF LG INT W/O PERFORATION OR ABSCESS W/O BLEEDING Status: Acute Comment: Leukocytosis improving. (3) Urinary retention Code(s): R33.9 - RETENTION OF URINE, UNSPECIFIED Status: Acute Comment: Mccullough in place (4) Diabetes mellitus type 2 in obese Code(s): E11.69 - TYPE 2 DIABETES MELLITUS WITH OTHER SPECIFIED COMPLICATION; E66.9 - OBESITY, UNSPECIFIED Status: Chronic (5) Altered mental status Code(s): R41.82 - ALTERED MENTAL STATUS, UNSPECIFIED Status: Acute (6) Respiratory failure, acute Code(s): J96.00 - ACUTE RESPIRATORY FAILURE, UNSP W HYPOXIA OR HYPERCAPNIA Status: Acute - Plan plan discussed w/ family, continue antibiotics, PT/OT, protective services social worker Mccullough out--monitor for potential retention -: check labs -: dispo planning -: May need to de-escalte/d/c IVF * .
[2017-05-08 05:13] LABS: Calcium 8.9 mg/dL (7.8-10.44); Chloride 108 mmol/L (98-107); Potassium 3.8 mmol/L (3.5-5.1); Sodium 141 mmol/L (136-145)
[2017-05-08 05:23] LABS: BUN (Urea Nitrogen) 13 mg/dL (9.8-20.1); Calc. Creatinine Clearance 40 mL/min (70-130); Estimated GFR-MDRD 41; Glucose 147 mg/dL (83-110)
[2017-05-08 05:57] LABS: Anion Gap 14 mmol/L (10-20); Carbon Dioxide 23 mmol/L (23-31)
[2017-05-08] MEDS: Levothyroxine Sodium 100 MCG TAB PO SCH (06:08)
[2017-05-08] MEDS: Enoxaparin Sodium 30 MG/0.3 ML SYRINGE SC SCH (07:58)
[2017-05-08] MEDS: Carvedilol 25 MG TAB PO SCH (07:59)
[2017-05-08] MEDS: cloNIDine 0.2 MG TAB PO SCH (07:59)
[2017-05-08] MEDS: Ezetimibe 10 MG TAB PO SCH (07:59)
[2017-05-08] MEDS: traZODone HCl 150 MG TAB PO SCH (07:59)
[2017-05-08] MEDS: hydrALAZINE 25 MG TAB PO SCH ×2 (07:59→14:46)
[2017-05-08] MEDS: Amlodipine 10 MG TAB PO SCH (07:59)
[2017-05-08] MEDS: metroNIDAZOLE 500 MG TAB PO SCH ×2 (07:59→14:46)
[2017-05-08] MEDS: Aspirin 325 mg Enteric Coated Tablet PO SCH (07:59)
[2017-05-08] MEDS: Atorvastatin Calcium 40 MG TAB PO SCH (08:00)
[2017-05-08] MEDS: ALPRAZolam 0.5 MG TAB PO SCH (08:00)
[2017-05-08] MEDS: Insulin Detemir 100 UNITS/ML 45 UNITS in Pre-Filled Syringe 1 EACH SC SCH (08:21)
[2017-05-08 09:40] VITALS: BP 109/61; TEMP 98
--- NOTE | 2017-05-08 11:02 | PDOC.PN ---
- Subjective Encounter Start Date: 05/08/17 Encounter Start Time: 14:00 Subjective: Patient still with some lower abdominal pain, but feeling much better. -: Urinating well since ayon d/c'd. Getting up and a bit unsteady but has -: walker at home and wants to go home. Feels like she can make it at home. - Objective Resuscitation Status: Resuscitation Status FULL:Full Resuscitation MAR Reviewed: Yes Vital Signs & Weight: Vital Signs (12 hours) Temp Pulse Resp BP BP BP Pulse Ox 05/08/17 08:00 98 F 65 20 109/61 95 05/08/17 07:59 61 111/62 05/08/17 04:00 98.0 F 61 20 134/72 91 L 05/08/17 00:59 98.1 F 60 20 136/62 92 L Weight Weight 161 lb 8 oz I&O: 05/07/17 05/08/17 05/09/17 06:59 06:59 06:59 Intake Total 1836 840 360 Balance 1836 840 360 Result Diagrams: 05/05/17 03:34 05/08/17 04:03 Additional Labs: Accuchecks 05/08/17 05/07/17 05:42 19:33 POC Glucose 156 H 235 H Phys Exam - Physical Examination Constitutional: NAD HEENT: moist MMs Respiratory: no wheezing, no rales, no rhonchi, clear to auscultation bilateral Cardiovascular: RRR, no significant murmur Gastrointestinal: soft, positive bowel sounds LLQ TTP, no guarding Neurological: non-focal, moves all 4 limbs Psychiatric: normal affect, A&O x 3 Dx/Plan (1) Diverticulitis large intestine Code(s): K57.32 - DVTRCLI OF LG INT W/O PERFORATION OR ABSCESS W/O BLEEDING Status: Acute Comment: Leukocytosis improving. (2) Urinary retention Code(s): R33.9 - RETENTION OF URINE, UNSPECIFIED Status: Acute Comment: Ayon d/c'd, voiding (3) Diabetes mellitus type 2 in obese Code(s): E11.69 - TYPE 2 DIABETES MELLITUS WITH OTHER SPECIFIED COMPLICATION; E66.9 - OBESITY, UNSPECIFIED Status: Chronic (4) Acute renal failure (ARF) Status: Acute Comment: Continued improvement off IV fluids. - Plan cont current plan of care, continue antibiotics, PT/OT D/C home today if does well with PT. * . - Discharge Day Encounter end time: 14:30
--- NOTE | 2017-05-08 21:46 | DIS ---
PRIMARY CARE PHYSICIAN: Teddy Parks MD DIAGNOSES ON ADMISSION: 1. Acute diverticulitis. 2. Urinary retention. 3. Acute on chronic kidney disease. 4. Diabetes mellitus type 2. 5. Hypertension. DIAGNOSES AT DISCHARGE: 1. Diverticulitis, improving. 2. Urinary retention, resolved. 3. Diabetes mellitus type 2. 4. Acute renal failure, improved. PROCEDURE: CT of the abdomen and pelvis, stone protocol, showing no evidence of urinary tract obstru ction or calcification, but lower left colon diverticulitis. PERTINENT LABORATORY DATA: White blood cell count 17,000 on admission, down to 11,000 at discharge. Creatinine 2.17 on admission, down to 1.26 at discharge. SUMMARY OF HOSPITAL COURSE: This is an 81-year-old white female with a history of diabetes, hyperten kulwant, and chronic kidney disease who came in because she was having nausea and trouble urinating. In the ER, she was evaluated. Her urine was clear for infection. She did have a Mccullough placed, which r eturned a large amount of urine. She had a CT scan of the abdomen and pelvis, which showed diverticu litis. The patient was put in hospital on IV antibiotics. She had continued improvement during her hospitalization with lowering of her white blood cell count, no fevers, and stable vital signs. She eventually was able to have her Mccullough removed and was able to urinate. She had improvement of her pa in, was switched over to oral antibiotics and was ambulating well with PT on the day of discharge. S he was a little unsteady, has a walker at home, but would benefit from some home PT, so that has been arranged. DISCHARGE MANAGEMENT: Discharged to home with home health. ACTIVITY: As tolerated. Ambulate with walker only and go slowly. DIET: Diabetic, low-sodium diet. FOLLOWUP: Follow up with Dr. Teddy Parks in 7 days. MEDICATIONS: The patient is to resume all of her medications plus, 1. Levofloxacin 500 mg daily for 5 days. 2. Metronidazole 500 mg 3 times a day for 5 days.
== END 2017-05-08 16:47 | disposition home or self-care (01) | DRG 392 ==
LOC: ERS 15:11 → T4-B 17:33
PROVIDERS: ADMIT Family Medicine; ATTEND Family Medicine
DX: K57.32 Diverticulitis of large intestine without perforation or abscess without bleeding (principal); N17.9 Acute kidney failure, unspecified; R33.9 Retention of urine, unspecified; E03.9 Hypothyroidism, unspecified; F41.9 Anxiety disorder, unspecified; F31.9 Bipolar disorder, unspecified; Z79.84 Long term (current) use of oral hypoglycemic drugs; Z79.82 Long term (current) use of aspirin; E66.9 Obesity, unspecified; Z68.33 Body mass index [BMI] 33.0-33.9, adult; E11.22 Type 2 diabetes mellitus with diabetic chronic kidney disease; I12.9 Hypertensive chronic kidney disease with stage 1 through stage 4 chronic kidney disease, or unspecified chronic kidney disease; N18.9 Chronic kidney disease, unspecified
CPT/HCPCS: 36415; 36416; 51702; 74176; 80048; 81003; 85025; 87086; 96365; G8978-GP-CI; G8979-GP-CI; G8980-GP-CI; J1650; J1815; J1956